=== PATIENT | female | born 1970 | race Caucasian/White ===

== ENCOUNTER 2023-04-29 18:05 | Outpatient (REF) | payer MEDICAID, SELFPAY ==
[2023-04-29 18:50] LABS: Influenza A PCR NEGATIVE (Negative); Influenza B PCR NEGATIVE (Negative); Resp Syncy Virus RNA Qual PCR NEGATIVE (Negative); SARS COV2 PCR INHOUSE NEGATIVE (Negative)
== END 2023-04-29 18:06 | disposition home or self-care (01) ==
LOC: HO.HHCLNP 18:05
PROVIDERS: Visit Provider Emergency Medicine
DX: Z11.52 Encounter for screening for COVID-19 (principal); R68.89 Other general symptoms and signs
CPT/HCPCS: 0241U; 87070

== ENCOUNTER 2023-10-31 13:04 | Outpatient (REF) | payer MEDICAID, SELFPAY ==
[2023-10-31 16:32] LABS: Alanine Aminotransferase 22 U/L (0-31); Albumin Level 3.9 g/dL (3.5-5.0); Alkaline Phosphatase 74 U/L (39-117); Anion Gap 13 (12-20); Aspartate Amino Transferase 23 U/L (5-31); Bilirubin Total 0.1 mg/dL (0.0-1.0); Blood Urea Nitrogen 13 mg/dL (9-16); Calcium 9.3 mg/dL (8.4-10.2); Carbon Dioxide 26 mmol/L (22-29); Chloride 105 mmol/L (96-108); Cholesterol 184 mg/dL (<200); Estimated Glomerular Filt Rate 55; Glucose Random 82 mg/dL (60-115); HDL Cholesterol 48 mg/dL (>40); LDL Cholesterol Calculated 110 mg/dL (<100); Potassium 3.9 mmol/L (3.3-5.1); Sodium 140 mmol/L (135-145); Total Protein 7.7 g/dL (6.5-8.0); Triglycerides 132 mg/dL (<150)
[2023-10-31 16:35] LABS: Rheumatoid Factor 23.7 IU/mL (<15.0)
[2023-10-31 16:49] LABS: Estimated Average Glucose 120 mg/dL; Hemoglobin A1c % 5.8 % (<6.0)
== END 2023-10-31 13:05 | disposition home or self-care (01) ==
LOC: HO.HHCL 13:04
PROVIDERS: Visit Provider General Practice
DX: E78.49 Other hyperlipidemia (principal); M06.9 Rheumatoid arthritis, unspecified
CPT/HCPCS: 36415; 80053; 80061; 83036; 86431

== ENCOUNTER 2023-11-25 07:53 | Outpatient (REF) | payer MEDICAID, SELFPAY ==
--- NOTE | ~2023-11-25 | MM_ITS ---
EXAMINATION: MM SCREENING DIGITAL BREAST TOMOSYNTHESIS, BILATERAL CLINICAL INFORMATION: Screening. Asymptomatic. COMPARISON: Mammography: This study is compared with prior exams dating back to 2015. TECHNIQUE: Digital breast tomosynthesis is performed in both the craniocaudal and mediolateral oblique views along with computer-aided detection (CAD). Synthesized 2D images are generated from the tomosynthesis. FINDINGS: There are scattered areas of fibroglandular density (ACR BI-RADS breast composition Category b). There are no significant masses, abnormal calcifications, or other abnormalities. MM/MM tomosynthesis screening BI IMPRESSION: No mammographic evidence of malignancy. ASSESSMENT: BI-RADS BI-RADS 1 - Negative RECOMMENDATION: Routine annual mammography screening. 1 year F/U This examination should not preclude the clinical evaluation of a suspicious palpable abnormality. This patient's information was entered into a reminder system with a target due date for their next mammogram.
== END 2023-11-25 07:54 | disposition home or self-care (01) ==
LOC: HO.MAMMO 07:53
PROVIDERS: PCP General Practice; Visit Provider General Practice
DX: Z12.31 Encounter for screening mammogram for malignant neoplasm of breast (principal)
CPT/HCPCS: 77063; 77067

== ENCOUNTER → 2023-11-25 08:15 | Outpatient (BNV) | payer MEDICAID, SELFPAY | PROVIDERS: PCP General Practice; Visit Provider Radiology Diagnostic Radiology | DX: Z12.31 Encounter for screening mammogram for malignant neoplasm of breast (principal) | CPT/HCPCS: 77063; 77067 ==

== ENCOUNTER 2024-04-08 07:23 | Emergency (ER) | payer MEDICAID, SELFPAY ==
--- NOTE | ~2024-04-08 | XR_ITS ---
EXAMINATION: XR FOOT, RIGHT CLINICAL INFORMATION: Status post fall. COMPARISON: None available. TECHNIQUE: AP, lateral, and oblique views of the right foot. FINDINGS: Acute comminuted cortical disruption involving the head of the third and fourth metatarsals with lateral angulation. The phalanges of the toes are intact. The first second and fifth metatarsals are intact. The tarsal bones are intact. Degenerative changes in the first metatarsophalangeal joint.. XR/XR foot RT min 3V IMPRESSION: Acute comminuted laterally displaced fractures, heads of the third and fourth metatarsals, right foot. Positive exam. Electronically signed by: Julius Edmond MD 04/08/2024 08:14 AM EDT RP
--- NOTE | ~2024-04-08 | XR_ITS ---
EXAMINATION: XR ANKLE, RIGHT CLINICAL INFORMATION: Status post fall. COMPARISON: X-ray dated September 18, 2017 TECHNIQUE: AP, lateral, and mortise views of the right ankle. FINDINGS: No acute cortical disruption or malalignment. No lytic or blastic lesions. No metallic or radiopaque foreign body. No joint effusion. XR/XR ankle RT min 3V IMPRESSION: No acute fracture or dislocation. Electronically signed by: Julius Edmond MD 04/08/2024 08:12 AM EDT
--- NOTE | ~2024-04-08 | XR_ITS ---
EXAMINATION: XR KNEE, RIGHT CLINICAL INFORMATION: Status post fall. COMPARISON: X-ray dated September 18, 2017 TECHNIQUE: Four views of the right knee. FINDINGS: No acute cortical disruption or malalignment. Joint space narrowing involving mostly the medial compartment. No joint effusion. No lytic or blastic lesions. No subcutaneous emphysema. No metallic or radiopaque foreign body. XR/XR knee RT 3V IMPRESSION: No acute fracture or dislocation. Electronically signed by: Julius Edmond MD 04/08/2024 08:10 AM EDT
[2024-04-08 07:25] VITALS: BP 150/78; PULSE 111; RESP 20; TEMP 36.2; O2SAT 97; BMI 39.0
--- NOTE | 2024-04-08 07:38 | ED_ITS ---
HPI - Fall General Chief Complaint: Fall Stated Complaint: Fall yesterday - ankle injury Time Seen by Provider: 04/08/24 07:32 Source: patient, RN notes reviewed and old records reviewed Mode of arrival: ambulatory History of Present Illness ED Provider: Shila Sweeney PA-C [facility] Narrative: 53-year-old female no significant past medical history presenting to the ED complaining of right knee, foot and ankle pain s/p trip and fall while walking down stairs yesterday. States was picking up granddaughter from school and missed step, rolling ankle/falling to ground. Denies head trauma or LOC. has been ambulatory with discomfort. Admits to associated paresthesias. Denies injury to the area Related Data Allergies Allergy/AdvReac Type Severity Reaction Status Date / Time No Known Allergies Allergy Unknown NONE Verified 04/08/24 07:27 Review of Systems Review of Systems: Yes all other systems are reviewed and are negative Constitutional: Constitutional: Reports as per [facility] Past Medical History Attestation statement: The following information was validated with the patient. Source: old records reviewed Social History Social History Advance Directives: No Advance Directives Information Provided: Yes Do you have a plan to hurt others: No Plan Physical Exam Vital Signs: Vital Signs: Last Vital Signs Temp 97.1 F 04/08/24 07:25 Pulse 111 H 04/08/24 07:25 Resp 20 04/08/24 07:25 BP 150/78 H 04/08/24 07:25 Pulse Ox 97 04/08/24 07:25 O2 Del Method Room Air 04/08/24 07:25 BMI result Body Mass Index 39.0 Const: General: cooperative, healthy appearing and no acute distress Orientation/consciousness: patient oriented x3 Limitations: no limitations HEENT: Head: Yes normal to inspection and Yes atraumatic Ears: hearing grossly normal bilaterally General nose exam: Normal external nose present Face and sinus: Yes normal facial exam Eyes: General: appearance normal, both eyes and all related structures EOM: EOMs intact bilaterally Neck: Neck: Yes normal visual inspection and Yes no meningeal signs Resp: Effort & Inspection: normal respiratory effort and no respiratory distress Cardio: Rate: regular rate Skin: Rashes: no rashes Wounds: no wounds Neuro: General: patient oriented x3, tone normal and no meningeal signs Cranial nerves: Yes CN's II-XII intact bilaterally Gait exam (Neuro): Normal gait present Extrem: Other: Right knee with mild swelling and superficial abrasion. Mildly tender to palpation. ROM intact with some discomfort. Right ankle/foot with mild swelling > lateral aspect. Diffusely tender to palpation. Limited ROM secondary to pain. Neurovascularly intact. No crepitus Course Course Course Narrative: XR knee RT 3V IMPRESSION: No acute fracture or dislocation. XR ankle RT min 3V IMPRESSION: No acute fracture or dislocation. XR foot RT min 3V IMPRESSION: Acute comminuted laterally displaced fractures, heads of the third and fourth metatarsals, right foot. Positive exam. > posterior short-leg splint applied and crutches. Patient to be nonweightbearing until follows up with Orthopedics Results discussed with patient including worrisome signs and symptoms and strict return precautions, and when to return to the emergency department. They verbalized understanding and feel safe for discharge at this time. Medications Administered Discontinued Medications Generic Name Dose Route Start Last Admin Trade Name Luis Manuelq PRN Reason Stop Dose Admin Ketorolac Tromethamine 30 mg 04/08/24 07:41 04/08/24 08:09 Ketorolac Tromethamine 30 Mg/Ml Vial IM 04/08/24 07:42 30 mg ONCE ONE Administration Procedures Orthopedic Splinting/Casting Injury #1: Side: right Lower Extremity Injury Location: foot Lower Extremity Immobilizer: posterior splint Other Orthopedic Equipment: crutches Medical Decision Making Medical Decision Making MDM Narrative: 53-year-old female no significant past medical history presenting to the ED complaining of right knee, foot and ankle pain s/p trip and fall while walking down stairs yesterday. On exam tachycardic likely from pain, NAD/nontoxic appearing, physical exam as noted above. Concern for fracture vs sprain. No ev idence of septic joint/arthritis plan: X-rays, pain control Please refer to course for remaining clinical decision making, interpretation of labs/imaging results, and discussions with consultants and/or family members. Differential Diagnosis Differential Diagnoses: The differential diagnosis associated with the presentation includes As above Independent Interpretation I performed an independent interpretation of an: Plain X-Ray Radiology Impression Discussion of test interpretation with radiology: I have reviewed the radiologist's reading. External Record Review External record reviewed: Inpatient record, Office record, Outpatient record, Prior outpatient labs, Prior outpatient radiology, Primary care record and Outside ED record Tests considered The following testing was considered but not selected: As above Prescription Management I considered prescription management with: Pain Medication Discharge Plan Discharge Clinical Impression: Closed fracture of head of metatarsal bone Patient Disposition: Home, Self-Care Instructions: Foot Fracture in Adults (ED) Additional Instructions: You broke your 3rd and 4th foot bones, metatarsal heads. Keep splint on, dry, and clean DO NOT PUT ANY WEIGHT ON YOUR RIGHT FOOT. USE CRUTCHES You need to follow up with Orthopedics, call to make an appointment Ice and elevate Take ibuprofen and Tylenol for pain/swelling If her toes become increasingly swollen, painful, discolored, or numb remove splint and return to the ED [place] [facility] [place] [place] [facility] [facility] [place] Group] - 1 week Stand Alone Forms: Work/School Release Print Language: Greenlandic
[2024-04-08] MEDS: Ketorolac Tromethamine 30 MG/ML VIAL IM (08:09)
[2024-04-08 09:36] VITALS: BP 127/97; PULSE 79; RESP 18; TEMP 36.6
== END 2024-04-08 09:38 | disposition home or self-care (01) ==
PROVIDERS: Emergency Provider Emergency Medicine; PCP General Practice
DX: S92.331A Displaced fracture of third metatarsal bone, right foot, initial encounter for closed fracture (principal); S80.211A Abrasion, right knee, initial encounter; M25.561 Pain in right knee; M25.571 Pain in right ankle and joints of right foot; W10.9XXA Fall (on) (from) unspecified stairs and steps, initial encounter; Y93.89 Activity, other specified; Y92.89 Other specified places as the place of occurrence of the external cause; Y99.8 Other external cause status
CPT/HCPCS: 29515; 73562; 73610; 73630; 96372; 99283; 99284; J1885

== ENCOUNTER → 2024-04-08 07:37 | Outpatient (BNV) | payer MEDICAID, SELFPAY | PROVIDERS: Emergency Provider Emergency Medicine; PCP General Practice; Visit Provider Radiology Diagnostic Radiology | DX: S92.331A Displaced fracture of third metatarsal bone, right foot, initial encounter for closed fracture (principal); S92.344A Nondisplaced fracture of fourth metatarsal bone, right foot, initial encounter for closed fracture; M25.561 Pain in right knee; M25.571 Pain in right ankle and joints of right foot | CPT/HCPCS: 73562; 73610; 73630 ==

== ENCOUNTER 2024-04-16 11:43 | Outpatient (REF) | payer MEDICAID, SELFPAY ==
--- NOTE | ~2024-04-16 | XR_ITS ---
EXAMINATION: XR FOOT, RIGHT CLINICAL INFORMATION: Displaced fracture 5th metatarsal COMPARISON: X-rays of the right foot March 2024 TECHNIQUE: AP, lateral, and oblique views of the right foot. FINDINGS: There is a minimally displaced and angulated fracture of the 3rd metatarsal the level of the metatarsal neck. The distal fragment is tilted slightly laterally. No significant change compared to prior. Minimally displaced fracture of the 4th metatarsal better visualized on the prior examination. 5th metatarsal intact. There is mild to moderate osteoarthritis of the 1st metatarsophalangeal joint. Cyst present the base of the 4th metatarsal likely related to arthrosis of the 4th tarsometatarsal joint. Small plantar calcaneal spur. XR/XR foot RT min 3V IMPRESSION: 1. Fractures of the 3rd and 4th metatarsals unchanged compared with the prior examination 04/08/2024.. 2. Osteoarthritis Electronically signed by: Isaias Panchal MD 04/16/2024 05:19 PM EDT
== END 2024-04-16 11:44 | disposition home or self-care (01) ==
LOC: HO.HOSX 11:43
DX: S92.351A Displaced fracture of fifth metatarsal bone, right foot, initial encounter for closed fracture (principal); S92.331D Displaced fracture of third metatarsal bone, right foot, subsequent encounter for fracture with routine healing; S92.341D Displaced fracture of fourth metatarsal bone, right foot, subsequent encounter for fracture with routine healing
CPT/HCPCS: 73630; 99212

== ENCOUNTER 2024-04-16 13:47 | Outpatient (AMB) | payer MEDICAID, SELFPAY ==
[2024-04-16 13:54] VITALS: BMI 39.0
--- NOTE | 2024-04-16 13:54 | MHC.OFFVIS ---
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 Patient reports throbbing when standing, numbness, heel pain, ankle pain, as well as a burning sensation on the volar aspect of the right foot. She has been taking Ibuprofen 600 mg PRN for pain with minimal relief. Reports right ankle fracture 2 years ago in [place]. 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 The patient reports that at that time, she missed a step, and slipped onto her right foot, and immediately began to experience significant discomfort and swelling in that area. Patient states that she went to the emergency department the next day, where x-rays were taken revealing a minimally displaced fractures of the 3rd and 4th metatarsal heads. Patient was put in a splint at that time, but the patient states that this was incredibly cumbersome and heavy, so she did remove the splint fairly frequently, including for bathing. Today, the patient reports that she does still have some pain in her foot, but it has significantly improved since ED visit. The patient reports that she has been nonweightbearing since date of injury. No other acute complaints or concerns at this time. [facility] Social History (Updated 04/16/24 @ 14:01 by ELEANOR Nelson) Current occupational status: employed Current occupation: [employer] Physical Exam Vital Signs: BMI result Body Mass Index 39.0 Extrem Other: On inspection, there is noted to be edema of the right foot, particularly at the level of the 3rd and 4th metatarsal heads No erythema or ecchymosis noted No lacerations, abrasions, open areas No evidence of infection Patient reports tenderness to palpation of the 3rd and 4th metatarsal heads of the right foot Patient is able to flex and extend the digits of the right foot Distal sensation intact Capillary refill brisk Office Procedures AMB Fracture Care Details: Right 3rd and 4th metatarsal head fractures Fracture Billing Code: Fracture Billing Code Results Reviewed Results Reviewed: X-rays obtained in the office today and independently reviewed by me, Juan Carlos Medina PA-C, demonstrate minimally displaced fractures of the 3rd and 4th metatarsal heads of the right foot. Assessment & Plan Assessment & Plan (1) Fracture of third metatarsal bone of right foot with routine healing: Code(s): S92.331D - Displaced fracture of third metatarsal bone, right foot, subsequent encounter for fracture with routine healing Category: Medical (2) Fracture of fourth metatarsal bone of right foot with routine healing: Code(s): S92.341D - Displaced fracture of fourth metatarsal bone, right foot, subsequent encounter for fracture with routine healing Category: Medical Plan 1. Minimally displaced fractures of the 3rd and 4th metatarsal heads of the right foot Date of injury 04/07/2024 At this time, patient was placed into a walking boot, and is told that she can weight bear as tolerated while wearing the boot Patient is educated that she can remove the boot while at rest And while bathing and sleeping patient understands this and is amenable to this plan Patient is educated that she should not weight bear without boot for risk of displacement of the fractures Patient will follow-up in 3-4 weeks with repeat x-rays for reassessment, sooner with any acute concerns Orders: Orders XR foot RT min 3V 04/16/24 S92.351A - Displaced fracture of fifth metatarsal bone, right foot, initial encounter for closed fracture Coding Level of Care Code New Pt Level 3 (49237) Diagnoses Fracture of third metatarsal bone of right foot with routine healing S92.331D Fracture of fourth metatarsal bone of right foot with routine healing S92.341D CPT Codes Fracture Care - Fracture Billing Code: Fracture Billing Code ([id number])
== END 2024-04-16 14:55 | disposition home or self-care (01) ==
LOC: HO.HOS 13:47
PROVIDERS: PCP General Practice
DX: S92.331D Displaced fracture of third metatarsal bone, right foot, subsequent encounter for fracture with routine healing (principal); S92.341D Displaced fracture of fourth metatarsal bone, right foot, subsequent encounter for fracture with routine healing
CPT/HCPCS: 99203

== ENCOUNTER 2024-05-07 10:47 | Outpatient (REF) | payer MEDICAID, SELFPAY | END 2024-05-07 10:48 | disposition home or self-care (01) | LOC: HO.HOSX 10:47 | DX: Z13.89 Encounter for screening for other disorder (principal) ==

== ENCOUNTER 2024-09-21 17:47 | Emergency (ER) | payer MEDICAID, SELFPAY ==
--- NOTE | ~2024-09-21 | XR_ITS ---
CLINICAL HISTORY: sore throat, cough, cp 2 view chest x-ray Comparison: None Findings: No consolidation or effusion. Minimal left basilar atelectasis and/or scarring. No pneumothorax. Heart size is normal. No acute fracture. IMPRESSION: No consolidation. This document has been electronically signed by: Sebas Fallon MD on 09/21/2024 19:53:03
[2024-09-21 17:50] VITALS: BP 147/77; PULSE 104; RESP 18; TEMP 36.8; O2SAT 99; BMI 38.1
--- NOTE | 2024-09-21 17:50 | ED_ITS ---
HPI - General Adult General Chief complaint: Upper Respiratory Symptoms Stated complaint: Flu like symptoms Time Seen by Provider: 09/21/24 19:38 Source: patient Mode of arrival: ambulatory Limitations: no limitations History of Present Illness ED Provider: Dr. Roderick Recinos HPI narrative: 54-year-old female with a history of asthma, rheumatoid arthritis, fibromyalgia who presents emergency department for evaluation of 2 days of headache, sore throat, fever, chills, nonproductive cough, pleuritic chest pain and shortness of breath. Patient states she was had subjective fever and chills. The patient has a persistent nonproductive cough. Patient states that she was had a headache which is worse with coughing and a sore throat which is also worse with coughing. She states she was had no appetite in his only had a small amount of fluid to drink over the last 24 hours. Patient was been using her inhalers in her nebulizers and they have become less effective. Related Data Home Medications ?Medication ?Instructions ?Recorded ?Confirmed albuterol sulfate 90 mcg/actuation 2 puff inhalation Q4H PRN 04/16/24 aerosol inhaler (Ventolin HFA) amitriptyline 75 mg tablet 75 mg PO BEDTIME 04/16/24 atorvastatin 40 mg tablet 40 mg PO DAILY 04/16/24 baclofen 20 mg tablet 20 mg PO BID 04/16/24 cyanocobalamin (vitamin B-12) 500 500 mcg PO DAILY 04/16/24 mcg tablet famotidine 20 mg tablet 20 mg PO heartburn 04/16/24 gabapentin 800 mg tablet 800 mg PO pain 04/16/24 loratadine 10 mg tablet 10 mg PO QAM 04/16/24 mometasone 100 mcg/actuation HFA 1 puff inhalation 04/16/24 aerosol inhaler (Asmanex HFA) quetiapine 100 mg tablet 100 mg PO BEDTIME 04/16/24 sertraline 50 mg tablet 50 mg PO DAILY 04/16/24 zolpidem 5 mg tablet 5 mg PO BEDTIME PRN insomnia 04/16/24 Previous Rx's ?Medication ?Instructions ?Recorded acetaminophen 500 mg tablet 1,000 mg (2 x 500 mg) PO Q6H PRN 09/21/24 (Tylenol Extra Strength) fever or pain #20 tabs amoxicillin 500 mg capsule 1,000 mg (2 x 500 mg) PO TID 5 09/21/24 days #30 caps azithromycin 250 mg tablet See Rx Instructions PO .COMPLEX #6 09/21/24 (Zithromax Z-Surinder) tabs prednisone 20 mg tablet 60 mg (3 x 20 mg) PO DAILY 5 days 09/21/24 #15 tabs Allergies Allergy/AdvReac Type Severity Reaction Status Date / Time No Known Allergies Allergy Unknown NONE Verified 09/21/24 17:52 Review of Systems Review of Systems: Yes all other systems are reviewed and are negative [facility] Past Medical History [facility] Narrative: Social history: The patient denies tobacco, alcohol and drug use. Social History Social History (Updated 04/16/24 @ 14:01 by ELEANOR Nelson) Current occupational status: employed Current occupation: [employer] Physical Exam ED Vital Signs: Vital Signs - 24 hr 09/21/24 17:50 Temperature 98.2 F Pulse Rate 104 H Respiratory Rate 18 Blood Pressure 147/77 H Pulse Oximetry 99 Oxygen Delivery Method Room Air BMI result Body Mass Index 38.1 Vital signs revealed an elevated heart rate of 104 and an elevated blood pressure of 147/77 Exam: General: Awake, alert in no distress, patient has a persistent nonproductive paroxysmal cough Head: Normocephalic, atraumatic EENT: PERRL, Lids normal, sclera normal, conjunctiva normal, nose normal , ears normal, throat without erythema or exudates Neck: Supple, no adenopathy Lung: breath sounds symmetric, diffuse wheezing and diffuse rhonchi Chest: symmetric movement, nontender Heart: regular rate and rhythm, normal S1, S2 no murmurs or rubs Abdomen: soft, non-tender, nondistended, normal bowel sounds Back: no vertebral tenderness, no CVAT Extremities: no deformities, moves all extremities symmetrically Neuro: Awake, alert, oriented, normal speech, cranial nerves intact, moves all extremities symmetrically Psych: Pleasant, cooperative Course Course Course Narrative: RME, this is a rapid medical exam performed by Ceasar Tom please refer to primary provider for complete H&P- 54-year-old female presents for evaluation of fevers, body aches cough, congestion and sore throat. Plan for viral swabs and strep testing. Medical Decision Making Medical Decision Making [facility] Narrative: 54-year-old female with a history of asthma, rheumatoid arthritis, fibromyalgia who presents emergency department for evaluation of 2 days of headache, sore throat, fever, chills, nonproductive cough, pleuritic chest pain and shortness of breath. Patient states she was had subjective fever and chills. The patient has a persistent nonproductive cough. Patient states that she was had a headache which is worse with coughing and a sore throat which is also worse with coughing. She states she was had no appetite in his only had a small amount of fluid to drink over the last 24 hours. Patient was been using her inhalers in her nebulizers and they have become less effective. Differential diagnosis: ?Includes but is not limited to pneumonia, bronchitis, asthma exacerbation, anemia, electrolyte abnormalities Course: 20:22 My independent interpretation patient's laboratory evaluation is as follows: COVID-19, influenza and RSV tests were negative. Rapid strep was negative. The patient's chest x-ray revealed no acute infiltrates. Given the patient's rheumatoid arthritis and asthma, patient be treated for possible bacterial bronchitis with amoxicillin 1000 mg 3 times a day for 5 days and Zithromax Z- Surinder. Patient was also started on prednisone 60 mg once a day for 5 days. Here in the emergency department she was given her 1st dose of amoxicillin, Zithromax and prednisone. She was also given Tylenol 975 for her pleuritic chest pain Admission/Observation Consideration of admission/observation: Escalation of care including admission/observation considered (Yes) Lab Data MDM Lab Attestation statement: I reviewed the patient's lab results. Labs: Lab Results 09/21/24 Range/Units 18:01 Influenza Type A (PCR) NEGATIVE (Negative) Influenza Type B (PCR) NEGATIVE (Negative) RSV RNA Qual (PCR) NEGATIVE (Negative) SARS-CoV-2 RNA (RT-PCR) NEGATIVE (Negative) S. pyogenes GrpA MEJIA Negative (Negative) Independent Interpretation I performed an independent interpretation of an: EKG and Plain X-Ray Interpretation: My independent interpretation patient's two view chest x-ray is as follows: No acute infiltrates or consolidations noted My independent interpretation patient's 12 lead EKG done on 09/21/2024 at 17:55 hours is as follows: Normal sinus rhythm rate 94, normal [place] interval, QRS duration QTC interval, patient has artifact in the baseline which makes the EKG difficult to interpretation however there was no significant ST segment elevation or depression, no significant T-wave abnormalities, no PACs, no PVCs. Compared to an EKG dated 05/05/2020 18 at 18:35 hours there is no significant change. Radiology Impression Discussion of test interpretation with radiology: I have reviewed the radiologist's reading. Radiologist Impression: 2 view chest x-ray Comparison: None Findings: No consolidation or effusion. Minimal left basilar atelectasis and/or scarring. No pneumothorax. Heart size is normal. No acute fracture. IMPRESSION: No consolidation. This document has been electronically signed by: Sebas Fallon MD on 09/21/2024 19:53:03 Prescription Management I considered prescription management with: Pain Medication (Tylenol), Antibiotic and Other (Anti-inflammatory steroids: Prednisone) Amoxicillin and azithromycin Chronic Conditions Patient?s care impacted by: Other (Asthma, rheumatoid arthritis) Discharge Plan Discharge Clinical Impression: Acute bronchitis, Asthma exacerbation, Pleuritic chest pain Patient Disposition: Home, Self-Care Instructions: Acute Bronchitis (ED) Additional Instructions: Your COVID-19, influenza and RSV tests were negative. Your rapid strep throat test was negative. Your chest x-ray did not reveal any obvious pneumonia. At this time, I am concerned that you might have a bacterial bronchitis that is causing a flare-up of your asthma. Take amoxicillin 500 mg pills, 2 pills, every 6 hours (3 times a day) for 5 days. Take Zithromax (azithromycin) Z-Surinder as prescribed. Day 1 take 2 pills, each day after that take 1 pill for total of 5 days. This medication states in your system for 7-10 days and continues to work despite only taking it for 5 days. Take Tylenol (acetaminophen) 500 mg pills, 2 pills every 6 hours as needed for pain or fever. Continue to use your albuterol inhaler and your albuterol nebulizers to help with your shortness of breath. Follow-up with your doctor in 2 days. Please return to the emergency department if your symptoms get worse or if you develop any symptoms that are concerning to you. Prescriptions: New amoxicillin 500 mg capsule 1,000 mg PO TID 5 Days Qty: 30 0RF azithromycin [Zithromax Z-Surinder] 250 mg tablet See Rx Instructions .ROUTE .COMPLEX Qty: 6 0RF Rx Instructions: take 500 mg today (day 1), then 250 mg for 4 days (days 2-5) prednisone 20 mg tablet 60 mg PO DAILY 5 Days Qty: 15 0RF acetaminophen [Tylenol Extra Strength] 500 mg tablet 1,000 mg PO Q6H PRN (Reason: fever or pain) Qty: 20 0RF No Action zolpidem 5 mg tablet 5 mg PO BEDTIME PRN (Reason: insomnia) gabapentin 800 mg tablet 800 mg PO sertraline 50 mg tablet 50 mg PO DAILY cyanocobalamin (vitamin B-12) 500 mcg tablet 500 mcg PO DAILY famotidine 20 mg tablet 20 mg PO baclofen 20 mg tablet 20 mg PO BID quetiapine 100 mg tablet 100 mg PO BEDTIME amitriptyline 75 mg tablet 75 mg PO BEDTIME atorvastatin 40 mg tablet 40 mg PO DAILY Asmanex HFA 100 mcg/actuation HFA aerosol inhaler 1 puff inhalation albuterol sulfate [Ventolin HFA] 90 mcg/actuation HFA aerosol inhaler 2 puff inhalation Q4H PRN loratadine 10 mg tablet 10 mg PO QAM Print Language: Maori
--- NOTE | 2024-09-21 17:51 | ECG_ITS ---
Test Reason : CP Blood Pressure : */* mmHG Vent. Rate : 94 BPM Atrial Rate : 94 BPM P-R Int : 148 ms QRS Dur : 76 ms QT Int : 342 ms P-R-T Axes : 54 0 6 degrees QTcB Int : 427 ms Normal sinus rhythm Normal ECG When compared with ECG of 13-May-2018 18:35, No significant change was found Referred By: Deepak Tom Electronically Signed By: Marcos Meeks
[2024-09-21 18:12] LABS: IDNOW Serial# 58CA691E; Strep A Nucleic Acid Negative (Negative)
[2024-09-21 18:44] LABS: Influenza A PCR NEGATIVE (Negative); Influenza B PCR NEGATIVE (Negative); Resp Syncy Virus RNA Qual PCR NEGATIVE (Negative); SARS COV2 PCR INHOUSE NEGATIVE (Negative)
--- OUTSIDE RECORDS SUMMARY | 2024-09-21 19:21 | XMS_ITS | Encounter Summary ---
Author Organization [employer] Address [address] [place] [address] Care Team Providers Care Hydrological Technical Officer Name Role Phone Selina Hassan MD Primary Care Provider [phone] Reason for Visit * Reason Comments Med Refill Encounter Details Date Type Department Care Team (Late st Contact Info) Description 09/26/2023 Refill [facility] [address] [place], [place] [phone] Dylan Ferguson MD [address] [place] [address] Social History Tobacco Use Types Packs/Day Years Used Date Smoking Tobacco: Never Passive Smoke Exposure: Never Smokeless Tobacco: Never Alcohol Use Standard Drinks/Week Comments Never 0 (1 standard drink = 0.6 oz pur e alcohol) Comments Unknown Sex and Gender Information Value Date Recorded Sex Assigned at Female 04/29/2023 10:59 AM EST Legal Sex Female 10:55 AM EST Gender Identity Female 04/29/2023 10:59 AM EST Sexual Orientation Don't know 10/31/2023 1: 18 PM EDT Sexual Orientation Straight 10/31/2023 1: 18 PM EDT documented as of this encounter Plan of Treatment Not on file documented as of this encounter Visit Diagnoses Not on filedocumented in this encounter Care Teams Hydrological Technical Officer Relationship Specialty Start Date End Date Selina Hassan MD [address] [place] [address] [phone] PCP - General Family Medicine 10/31/23 documented as of this encounter
--- OUTSIDE RECORDS SUMMARY | 2024-09-21 19:21 | XMS_ITS | Clinical Summary ---
Author Organization [employer] Address [address] [place] [address] Care Team Providers Care Plant Operations Worker Name Role Phone Selina Hassan MD Primary Care Provider [phone] Allergies No known active allergies Medications * This document contains information received from the source organization and may not represent a complete record from that organization. meloxicam (Mobic) 15 MG tablet Take 15 mg by mouth in the morning. Active fluticasone (Flonase Allergy Relief) 50 MCG/ACT nasal spray Administer 1 spray into each nostril in the morning. Shake gently. Before first use, prime pump. After use, clean tip and replace cap. 16 g 1 04/29/20 23 Active loratadine (Claritin) 10 MG tablet Take 1 tablet (10 mg) by mouth in the morning. 30 tablet 3 04/29/20 23 Active montelukast (Singulair) 10 MG tablet Take 1 tablet (10 mg) by mouth in the morning. 30 tablet 1 04/29/20 23 Active Asmanex HFA 100 MCG/ACT aerosol INHALE 1 PUFF BY MOUTH TWICE DAILY IN THE MORNING AND AT BEDTIME RINSE MOUTH AFTER USING. 13 g 10/13/19 24 Active amitriptyline (Elavil) 75 MG tabletIndications: Migraine without aura and without status migrainosus, not intractable Take 1 tablet (75 mg) by mouth at bedtime. 90 tablet 3 10/31/19 24 Active sertraline (Zoloft) 50 MG tabletIndications: Depression, unspecified depression type Take 1 tablet (50 mg) by mouth Once per day. 90 tablet 3 10/31/19 24 025 Active baclofen (Lioresal) 20 MG tabletIndications: Neck pain Take 1 tablet (20 mg) by mouth 2 times daily. 180 tablet 3 10/31/19 24 Active atorvastatin (Lipitor) 40 MG tabletIndications: Other hyperlipidemia Take 1 tablet (40 mg) by mouth Once per day. 90 tablet 3 10/31/19 24 Active QUEtiapine (SEROquel) 100 MG tabletIndications: Depression, unspecified depression type Take 1 tablet (100 mg) by mouth at bedtime. 90 tablet 1 10/31/19 24 Active famotidine (Pepcid) 20 MG tablet Take 1 tablet (20 mg) by mouth if needed in the morning and at bedtime for heartburn. 180 tablet 3 10/31/19 24 025 Active Cyanocobalamin (Vitamin B-12) [address] 500 mcg under the tongue Once per day. 90 tablet 3 10/31/19 24 Active gabapentin (Neurontin) 800 MG tabletIndications: Neck pain Take 1 tablet (800 mg) by mouth if needed in the morning and at bedtime (pain). 180 tablet 3 11/21/19 24 Active zolpidem (Ambien) 5 MG tabletIndications: Primary insomnia TAKE 1 TABLET BY MOUTH EVERY DAY AT BEDTIME NEEDED FOR SLEEP 30 tablet 04/09/20 24 Active albuterol (2.5 MG/3ML) 0.083% nebulizer solution TAKE 3 ML BY NEBULIZATION ROUTE EVERY 6 HOURS NEEDED FOR WHEEZING OR SHORTNESS OF BREATH 75 mL 1 05/25/20 24 Active albuterol 108 (90 Base) MCG/ACT inhaler INHALE 2 PUFFS BY MOUTH EVERY 4 HOURS NEEDED FOR WHEEZING OR SHORTNESS OF BREATH 18 g 1 05/25/20 24 Active Active Problems Problem Noted Date Diagnosed Date Splinter of left foot 11/04/2023 Assessment & Plan (11/04/2023 1:30 PM EDT): Neck pain 11/03/2023 Assessment & Plan (11/03/2023 6:38 AM EDT): She would like to have breast reduction performed Needs BMI < 35, will work on with diet and lifestyle Has been to PT and with negative EMG/[place] Primary insomnia 11/03/2023 Assessment & Plan (11/03/2023 6:40 AM EDT): Sparing use of Ambien 5mg, discussed risks of tolerance and oversedation She will discuss other medications with her psych prescriber, when she has that relationship Mild persistent asthma without complication 10/14 Anxiety 04/29/2023 Depression 04/29/2023 Rheumatoid arthritis involving multiple sites Migraines 04/29/2023 HLD (hyperlipidemia) 04/29/2023 Encounters Date Type Department Care Team Description 08/27/2024 Population Health Risk Score [facility] Care [facility] (C3) Department [address] [phone] Provider, Population Health Generic from Last 3 Months Immunizations Name Administration Dates Next Due Influenza Injectable Quadriv alant Preservative Free IIV4 MDCK 05/26/2023 MMR 06/30/2023,05/28/2023 Pfizer Covid-19 Vaccine 12+ 05/26/2023 Social History Tobacco Use Types Packs/Day Years Used Date Smoking Tobacco: Never Passive Smoke Exposure: Never Smokeless Tobacco: Never Tobacco Cessation:Counseling Given: Not Answered Alcohol Use Standard Drinks/Week Comments Never 0 (1 standard drink = 0.6 oz pur e alcohol) Depression Answer Date Recorded Patient Health Questionnaire-9 Score 15 10/31/2023 Patient Health Questionnaire-9 Score 15 10/31/2023 Last PHQ-9: Questionnaire Data Not on file 0 10/31/2023 Housing Stability Answer Date Recorded What is your housing situation today? I have mendozabrigido adame 10/31/[address] you li ve. Do you have problems with any of the following? None of the above 10/31/2023 Food Insecurity Answer Date Recorded Within the past 12 months, y ou worried that your food would run out before you got money to buy more: Never True 10/31/2023 Within the past 12 months,th e food you bought just didn't last and you didn't have enough money to get more: Never True Transportation Answer Date Recorded In the past 12 months, has l ack of transportation kept you from medical appts, meetings, work or from getting things needed for daily living? Yes, it has kept me from medical appointments or getting medications. 10/31/2023 Utilities Answer Date Recorded In the past 12 months, has t he electric, gas, oil or water company threatened to shut off services in your home? No 10/21/2023 Depression Answer Date Recorded Patient Health Questionnaire-2 Score 6 10/31/2023 Comments No Sex and Gender Information Value Date Recorded Sex Assigned at Female 04/29/2023 10:59 AM EST Legal Sex Female 10:55 AM EST Gender Identity Female 04/29/2023 10:59 AM EST Sexual Orientation Don't know 10/31/2023 1: 18 PM EDT Sexual Orientation Straight 10/31/2023 1: 18 PM EDT Last Filed Vital Signs Vital Sign Reading Time Taken Comments Blood Pressure 140/79 11/04/2023 1:03 PM EDT Pulse 92 11/04/2023 1:03 PM EDT Temperature 37.1 ??C (98.7 ??F) 11/04/2023 1:03 PM ED T Respiratory Rate 12 11/04/2023 1:03 PM EDT Oxygen Saturation 97% 10/10/2023 1:03 PM EDT Inhaled Oxygen Concentration - - Weight 89.9 kg (198 lb 2 oz) 11/04/2023 1:03 PM EDT Height 157.5 cm (5' 2 ) 11/04/2023 1:03 PM EDT Body Mass Index 36.24 11/04/2023 1:03 PM EDT Plan of Treatment Health Maintenance Due Date Last Done Comments CT Colonography 1968 Colonoscopy 1968 Colorectal Cancer Screening 1968 FIT DNA/Cologuard 1968 FIT 1968 FOBT 1968 HIV Screening 1968 Sigmoidoscopy 1968 Hepatitis C Screening 1986 DTaP/Tdap/Td Vaccines (1 - Tdap) 1987 Hepatitis B Vaccines (1 of 3 - 19+ 3-dose series) 1987 Pneumococcal Vaccine: 50+ Years (1 of 2 - PCV) 1987 Pap Smear 1989 Cervical Cancer Screening 1998 HPV/Cotest 1998 Zoster Vaccines (1 of 2) 2018 COVID-19 Vaccine (2 - 2023-2 5 season) 2024 05/26/2023 Influenza Vaccine (#1) 2024 05/26/2023 Depression Monitoring (PHQ-9) 05/02/2024, 10/31/2023 Alcohol/Substance Use Screening 10/30/2024 10/31/2023 Depression Screening 10/30/2024 10/31/2023, 10/31/2023 Diabetes: Hemoglobin A1C 10/30/2024 10/31/2023 SDOH Screening 10/30/2024 10/31/2023 Tobacco Screening 11/03/2024 11/04/2023 Mammogram 11/24/2024 11/25/2023 RSV Patients and Patients Aged 60 years or older (1 - 1-dose 75+ series) 2043 HIB Vaccines Aged Out No longer eligi ble based on patient's age to complete this topic HPV Vaccines Aged Out No longer eligi ble based on patient's age to complete this topic Hepatitis A Vaccines Aged Out No long er eligible based on patient's age to complete this topic IPV Vaccines Aged Out No longer eligi ble based on patient's age to complete this topic Meningococcal Vaccine Aged Out No matthias roger eligible based on patient's age to complete this topic RSV under 20 months Aged Out No longe r eligible based on patient's age to complete this topic Rotavirus Vaccines Aged Out No longer eligible based on patient's age to complete this topic Procedures Procedure Name Priority Date/Time Associated Diagnosis Comments SARS COV2/INFLUENZA A/B AND RSV RNA QL NAAT Routine 09/21/2024 6:01 PM EDT STREP A NUCLEIC ACID Routine 09/21/2024 6:01 PM EDT BI MAMMOGRAM SCREENING TOMOSYNTHESIS BILATERAL Routine 11/25/2023 8:29 AM EDT Encounter for screening mammogram for malignant neoplasm of breast HEMOGLOBIN A1C Routine 10/31/2023 1:16 PM EDT Other hyperlipidemia from Last 3 Months or Most Recently Relevant to Health Maintenance Results * Strep A Nucleic Acid (09/21/2024 6:01 PM EDT) IDNOW SERIAL# [id number] [facility] Strep A Nucleic Acid Negative Negative [facility] Comment:All test results mus t be correlated with clinical findings.This test has not been evaluated for monitoring treatment ofinfection.Additional follow-up testing using the culture method isrequired if the result is negative and clinical symptomspersist, or in the event of an acute rheumatic feveroutbreak. 09/21/2024 6:01 PM EDT 09/21/2024 6:03 PM EDT us Generic External Data Provider LAB MICROBIOLOGY - GENERAL ORDERABLES Final Result Performing Organization Address [facility]/ZIP Co de Phone Number [facility] [address] [place] [phone] * SARS-CoV-2 RNA, Influenza A/B, and RSV RNA, Ql NAAT (09/21/2024 6:01 PM EDT) Influenza A PCR NEGATIVE Negative [facility] Influenza B PCR NEGATIVE Negative [facility] Resp Syncy Virus RNA Qual PCR NEGATIVE Negative [facility] SARS COV2 PCR NEGATIVE Negative [facility] Comment:All test results mus t be correlated with clinical findings.Negative results do not preclude SARS-CoV2, influenza Avirus, influenza B virus and/or RSV infectionand should not be used as the sole basis for treatment orother patient management decisions. Negative results must becombined with clinical observations, patient history, andepidemiological information.This test has not been evaluated for monitoring treatment ofinfection.This test has been authorized by the FDA under an EmergencyUse Authorization (EUA) for use by authorized laboratories.Testing performed on the [employer] GeneXpert utilizingreal-time RT-PCR.All SARS CoV2 and positive influenza A/B results arereported to [facility]. 09/21/2024 6:01 PM EDT 09/21/2024 6:03 PM EDT us Generic External Data Provider LAB MICROBIOLOGY - GENERAL ORDERABLES Final Result Performing Organization Address City/[facility]/ZIP Co de Phone Number [facility] [address] [place] [address] [phone] * BI Mammogram Screening Tomosynthesis Bilateral (11/25/2023 8:29 AM EDT) Anatomical Region Laterality Modality Breast Bilateral Mammography 11/25/2023 8:29 AM EDT Narrative 12/25/2023 7:33 AM EDT ? [facility] [place] ? [address] ?[place] [address] ? Mammography Report ? Signed ? Patient: Lia Dudley ?MR#: [id number] ?? [id number] ? : 1970 ?Acct:[id number] ? Age/Sex: 53 / F ?ADM Date: 11/25/23 ? Loc: HO.MAMMO ? Attending Dr: Selina Hassan MD ? Ordering Physician: Selina Hassan ?Results: 1Negative ? Date of Service: 11/25/23 ?Follow Up: 1 Year From Orig ?? inal Mammogram ? Procedure(s): MM tomosynthesis screening BI ?? Accession Number(s): [id number] ? cc: Sleina Hassan ? EXAMINATION: ?? MM SCREENING DIGITAL BREAST TOMOSYNTHESIS, BILATERAL ? CLINICAL INFORMATION: ? Screening. Asymptomatic. ? COMPARISON: ?? Mammography: This study is compared with prior exams dating back to ?? 2014. ? TECHNIQUE: ?? Digital breast tomosynthesis is performed in both the craniocaudal and ?? mediolateral oblique views along with computer-aided detection (CAD). ?? Synthesized 2D images are generated from the tomosynthesis. ? FINDINGS: ?? There are scattered areas of fibroglandular density (ACR BI-RADS breast ?? composition Category b). ? There are no significant masses, abnormal calcifications, or other ?? abnormalities. ? MM/MM tomosynthesis screening BI ?? IMPRESSION: ?? No mammographic evidence of malignancy. ? ASSESSMENT: ? BI-RADS BI-RADS 1 - Negative ? RECOMMENDATION: ?? Routine annual mammography screening. ? 1 year F/U ? This examination should not preclude the clinical evaluation of a ?? suspicious palpable abnormality. ? This patient's information was entered into a reminder system with a ?? target due date for their next mammogram. ? Dictated By: ?Tere Drake MD ? Signed By: ?<Electronically signed by Tere Drake MD in OV> ? 12/25/23728 ? DD/ 0829 ? TD/TT: ? Photogrammetrist: ? Procedure Note Errol Ramos - 12/25/2023 [facility] [address] [place] [address] Mammography Report Signed Patient: Lia DudleyMR#: [id number] : 1970Acct:[id number] Age/Sex: 53 / FADM Date: 11/25/23 Loc: YOAN Attending Dr: Selina Hassan MD Ordering Physician: Placido Hassanults: 1Negative Date of Service: 11/25/23Follow Up: 1 Year From Orig inal Mammogram Procedure(s): MM tomosynthesis screening BI Accession Number(s): [id number] cc: Selina Hassan EXAMINATION: MM SCREENING DIGITAL BREAST TOMOSYNTHESIS, BILATERAL CLINICAL INFORMATION: Screening. Asymptomatic. COMPARISON: Mammography: This study is compared with prior exams dating back to 2014. TECHNIQUE: Digital breast tomosynthesis is performed in both the craniocaudal and mediolateral oblique views along with computer-aided detection (CAD). Synthesized 2D images are generated from the tomosynthesis. FINDINGS: There are scattered areas of fibroglandular density (ACR BI-RADS breast composition Category b). There are no significant masses, abnormal calcifications, or other abnormalities. MM/MM tomosynthesis screening BI IMPRESSION: No mammographic evidence of malignancy. ASSESSMENT: BI-RADS BI-RADS 1 - Negative RECOMMENDATION: Routine annual mammography screening. 1 year F/U This examination should not preclude the clinical evaluation of a suspicious palpable abnormality. This patient's information was entered into a reminder system with a target due date for their next mammogram. Dictated By: Tere Drake MD Signed By: <Electronically signed by Tere Drake MD in OV> 12/25/23728 DD/ 8 TD/TT: Photogrammetrist: Selina Hassan MD IMG BI PROCEDURES Final Result * Hemoglobin A1c (10/31/2023 1:16 PM EDT) Hemoglobin A1c 5.8 <6.0 % [facility] Comment:Hemoglobin A1C Refer ence Range Adults: 4.8 - 6.0 % Non diabetic: < 6.0 % Goal: < 7.0 %Additional Action Suggested: > 8.0 %Note: Hemoglobin A1c results are invalid for patients with abnormal amounts of HbF. Blood transfusions may impact the HbA1c concentration in the patient sample. Estimated Average Glucose 120 mg/dL [facility] Comment:eAG = Estimated ave rage glucose which is %A1C expressed asaverage glucose, using the formula of the [id number] Glucose study (ADAG), Diabetes Care, Vol.31,#8,Jan. 2007 Blood Venous blood specimen / Unknown 10/31/2023 1:16 PM EDT 10/31/2023 4:07 PM EDT Selina Hassan MD LAB BLOOD ORDERABLES Final Res ult [facility] [address] [place] [phone] from Last 3 Months or Most Recently Relevant to Health Maintenance Care Teams Plant Operations Worker Relationship Specialty Start Date End Date Selina Hassan MD [address] [place] [address] PCP - General Family Medicine 10/31/23
--- OUTSIDE RECORDS SUMMARY | 2024-09-21 19:21 | XMS_ITS | Encounter Summary ---
Author Organization [employer] Address [address] [place] [address] Care Team Providers Care Principal Android Developer Name Role Phone Selina Hassan MD Primary Care Provider [phone] Reason for Visit * Reason Comments Med Refill Encounter Details Date Type Department Care Team (Late st Contact Info) Description 08/17/2023 Refill [facility] [address] [place], [place] [phone] Dylan Ferguson MD [address] [place] [address] Social History Tobacco Use Types Packs/Day Years [...] on filedocumented in this encounter Care Teams Principal Android Developer Relationship Specialty Start Date End Date Selina Hassan MD [address] [place] [address] [phone] PCP - General Family Medicine 10/31/23 documented as of this encounter
--- OUTSIDE RECORDS SUMMARY | 2024-09-21 19:21 | XMS_ITS | Encounter Summary ---
Author Organization [employer] Address [address] [place] [address] Care Team Providers Care Sweatband Cutting Machine Operator Name Role Phone Selina Hassan MD Primary Care Provider [phone] Reason for Visit * Reason Comments Med Change Request Encounter Details Date Type Department Care Team ([facility] st Contact Info) Description 10/10/2023 Refill [facility] [address] [place], [place] [phone] Yaima Rascon FNP Social History Tobacco Use Types Packs/Day Years [...] PM EDT documented as of this encounter Miscellaneous Notes * Telephone Encounter - MAMTA Ley - 10/13/2023 10:25 AM EDT Approving, but needs appt for additional refills. documented in this encounter Plan of Treatment Not on file documented as of this encounter Visit Diagnoses Not on filedocumented in this encounter Care Teams Sweatband Cutting Machine Operator Relationship Specialty Start Date End Date Selina Hassan MD [address] [place] [address] PCP - General Family Medicine 10/31/23 documented as of this encounter
[2024-09-21 19:39] VITALS: BP 125/71; PULSE 96; RESP 20; TEMP 37.2; O2SAT 99
[2024-09-21] MEDS: Amoxicillin 500 MG CAPSULE 1000 MG PO (20:34)
[2024-09-21] MEDS: predniSONE 20 MG TABLET 60 MG PO (20:34)
[2024-09-21] MEDS: Azithromycin 500 MG TABLET PO (20:35)
[2024-09-21] MEDS: Acetaminophen 325 MG TABLET 975 MG PO (20:35)
[2024-09-21 21:05] VITALS: BP 125/71; PULSE 96; RESP 20; TEMP 37.2; O2SAT 99
== END 2024-09-21 21:05 | disposition home or self-care (01) ==
PROVIDERS: Physician Assistant; Emergency Provider Emergency Medicine Emergency Medical Services; PCP General Practice
DX: J20.9 Acute bronchitis, unspecified (principal); J45.901 Unspecified asthma with (acute) exacerbation; R07.89 Other chest pain; R05.9 Cough, unspecified; J02.9 Acute pharyngitis, unspecified; Z79.899 Other long term (current) drug therapy; Z79.02 Long term (current) use of antithrombotics/antiplatelets; Z03.818 Encounter for observation for suspected exposure to other biological agents ruled out
CPT/HCPCS: 0241U; 71046; 87651; 93005; 99283; 99285

== ENCOUNTER → 2024-09-21 17:51 | Outpatient (BNV) | payer MEDICAID, SELFPAY | PROVIDERS: Emergency Provider Emergency Medicine Emergency Medical Services; PCP General Practice; Visit Provider Internal Medicine Cardiovascular Disease | DX: R07.9 Chest pain, unspecified (principal) | CPT/HCPCS: 93010 ==

== ENCOUNTER → 2024-09-21 19:30 | Outpatient (BNV) | payer MEDICAID, SELFPAY | PROVIDERS: Emergency Provider Emergency Medicine Emergency Medical Services; PCP General Practice; Visit Provider Radiology Neuroradiology | DX: J02.9 Acute pharyngitis, unspecified (principal); R07.9 Chest pain, unspecified; R05.9 Cough, unspecified | CPT/HCPCS: 71046 ==

== ENCOUNTER 2025-03-31 23:07 | Emergency (ER) | payer OTHER, SELFPAY ==
--- NOTE | ~2025-03-31 | XR_ITS ---
CLINICAL HISTORY: pain 3 view right ankle Comparison: CR/CT/SR - XR FOOT 3 OR MORE VIEWS RIGHT - 04/08/24 08:03 EDT CR/CT/SR - XR ANKLE 3 OR MORE VIEWS RIGHT - 04/08/24 08:00 EDT Findings: Bones intact. No dislocations. No significant arthritic change or erosions. No ankle effusion. No radiopaque foreign body. Calcaneal spur. Accessory ossicle posterior of the talus; os trigonum, stable. IMPRESSION: No acute findings of the right ankle. This document has been electronically signed by: Kang Parker MD on 03/31/2025 23:53:08
[2025-03-31 23:18] VITALS: BP 133/64; PULSE 85; RESP 20; TEMP 36.1; O2SAT 96; BMI 36.6
--- NOTE | 2025-04-01 00:01 | ED.EXTPRO ---
HPI - Extremity Problem General Chief complaint: Extremity Problem Stated complaint: twisted ankle walking down stairs Time Seen by Provider: 03/31/25 23:40 Source: patient Mode of arrival: ambulatory Limitations: no limitations History of Present Illness ED Provider: Dr. Sil Vogt HPI Narrative: Patient comes to the emergency room complaining of a sprain ankle on the right side. Patient states that earlier this evening, patient was walking down the stairs at home and sprain her ankle. Patient states that she has a lot of pressure and discomfort around the lateral aspect of the right ankle but is able to walk. Denies any other injury. Related Data Home Medications ?Medication ?Instructions ?Recorded ?Confirmed albuterol sulfate 90 mcg/actuation 2 puff inhalation Q4H PRN 04/16/24 aerosol inhaler (Ventolin HFA) amitriptyline 75 mg tablet 75 mg PO BEDTIME 04/16/24 atorvastatin 40 mg tablet 40 mg PO DAILY 04/16/24 baclofen 20 mg tablet 20 mg PO BID 04/16/24 cyanocobalamin (vitamin B-12) 500 500 mcg PO DAILY 04/16/24 mcg tablet famotidine 20 mg tablet 20 mg PO heartburn 04/16/24 gabapentin 800 mg tablet 800 mg PO pain 04/16/24 loratadine 10 mg tablet 10 mg PO QAM 04/16/24 mometasone 100 mcg/actuation HFA 1 puff inhalation 04/16/24 aerosol inhaler (Asmanex HFA) quetiapine 100 mg tablet 100 mg PO BEDTIME 04/16/24 sertraline 50 mg tablet 50 mg PO DAILY 04/16/24 zolpidem 5 mg tablet 5 mg PO BEDTIME PRN insomnia 04/16/24 Previous Rx's ?Medication ?Instructions ?Recorded acetaminophen 500 mg tablet 1,000 mg (2 x 500 mg) PO Q6H PRN 09/21/24 (Tylenol Extra Strength) fever or pain #20 tabs amoxicillin 500 mg capsule 1,000 mg (2 x 500 mg) PO TID 5 09/21/24 days #30 caps azithromycin 250 mg tablet See Rx Instructions PO .COMPLEX #6 09/21/24 (Zithromax Z-Surinder) tabs prednisone 20 mg tablet 60 mg (3 x 20 mg) PO DAILY 5 days 09/21/24 #15 tabs Allergies Allergy/AdvReac Type Severity Reaction Status Date / Time No Known Allergies Allergy Unknown NONE Verified 03/31/25 23:20 Review of Systems Review of Systems: Constitutional : No Weight loss, No Fever, No Chills, No Night Sweats, No Fatigue, No Malaise ENT/Mouth : No Hearing loss, No Ear Pain, No Nasal Congestion, No Sinus Pain, No Hoarseness, No sore throat, No Rhinorrhea, No Swallowing Difficulty Eyes: No Eye Pain, No Swelling, No Redness, No Foreign Body, No Discharge, No Vision Changes Cardiovascular : No Chest Pain, No SOB, No Dyspnea on Exertion, No Orthopnea, No Edema, No Palpitations Respiratory : No Cough, No Sputum, No Wheezing, No Smoke Exposure, No Dyspnea Gastrointestinal : No Nausea, No Vomiting, No Diarrhea, No Constipation, No abdominal Pain, No Hematochezia, No Melena Genitourinary : no irregular bleeding, No Dysuria, No Urinary Frequency, No Hematuria, No Urinary Incontinence, No Urgency, No Flank Pain, No Urinary Flow Changes, No Hesitancy Musculoskeletal : Complaining of right ankle pain and swelling, No Myalgias, No Joint Swelling Skin : No Skin Lesions, No rash Neuro : No Weakness, No Numbness, No Paresthesias, No Loss of Consciousness, No Dizziness, No Headache Psych : No Anxiety/Panic, No Depression, No SI/HI/AH/VH, No Social Issues, Heme/Lymph: No Bruising, No Bleeding,No Lymphadenopathy Endocrine : No Polyuria, No Polydipsia, No Temperature Intolerance [facility] Social History Social History (Updated 04/16/24 @ 14:01 by ELEANOR Nelson) Current occupational status: employed Current occupation: [employer] Physical Exam Exam: Exam: Appearance: Alert. Oriented X3. No acute distress. Eyes: Pupils equal, round and reactive to light. ENT: Pharynx normal. Neck: Normal inspection. Neck supple. No lymph nodes noted. No crepitus CVS: Normal heart rate and rhythm. Pulses normal. Normal S1 and S2 Respiratory: No respiratory distress. Breath sounds normal. No Wheezing. No rales Abdomen: Soft and nontender. No rigidity. No distention. Skin: Skin warm and dry. Normal skin color. Normal skin turgor. Extremities: No significant pain to palpation over the lateral malleolus or medial malleolus. There is slight swelling, no significant ecchymosis. Patient able to flex and extend and rotate the ankle. Patient able to walk and bear weight Neuro: Oriented X 3. No motor deficit. No sensory deficit. Moving all extremities. No slurred speech. CN 2 through 12 grossly intact Psych: calm, cooperative, normal affect Vital Signs: Vital Signs: Last Vital Signs Temp 97 F 03/31/25 23:18 Pulse 85 03/31/25 23:18 Resp 20 03/31/25 23:18 BP 133/64 03/31/25 23:18 Pulse Ox 96 03/31/25 23:18 O2 Del Method Room Air 03/31/25 23:18 BMI result Body Mass Index 36.6 Medical Decision Making Medical Decision Making MDM Narrative: X-rays of the ankle did not show any acute abnormality. Discussed with the patient that she likely has a sprain ankle, no obvious fracture. Patient states that she has a ibuprofen 800 at home and has plenty of pills at home. Independent Interpretation I performed an independent interpretation of an: Plain X-Ray Radiology Impression Discussion of test interpretation with radiology: I have reviewed the radiologist's reading. Radiologist Impression: Bones intact. No dislocations. No significant arthritic change or erosions. No ankle effusion. No radiopaque foreign body. Calcaneal spur. Accessory ossicle posterior of the talus; os trigonum, stable. IMPRESSION: No acute findings of the right ankle. Discharge Plan Discharge Clinical Impression: Sprain of ankle Patient Disposition: Home, Self-Care Instructions: Ankle Sprain (ED) Additional Instructions: Please follow-up with your primary care physician tomorrow. If you have any worsening or new symptoms, please return to the emergency room or call 911 Prescriptions: No Action amoxicillin 500 mg capsule 1,000 mg PO TID 5 Days Qty: 30 0RF azithromycin [Zithromax Z-Surinder] 250 mg tablet See Rx Instructions .ROUTE .COMPLEX Qty: 6 0RF Rx Instructions: take 500 mg today (day 1), then 250 mg for 4 days (days 2-5) prednisone 20 mg tablet 60 mg PO DAILY 5 Days Qty: 15 0RF acetaminophen [Tylenol Extra Strength] 500 mg tablet 1,000 mg PO Q6H PRN (Reason: fever or pain) Qty: 20 0RF zolpidem 5 mg tablet 5 mg PO BEDTIME PRN (Reason: insomnia) gabapentin 800 mg tablet 800 mg PO sertraline 50 mg tablet 50 mg PO DAILY cyanocobalamin (vitamin B-12) 500 mcg tablet 500 mcg PO DAILY famotidine 20 mg tablet 20 mg PO baclofen 20 mg tablet 20 mg PO BID quetiapine 100 mg tablet 100 mg PO BEDTIME amitriptyline 75 mg tablet 75 mg PO BEDTIME atorvastatin 40 mg tablet 40 mg PO DAILY Asmanex HFA 100 mcg/actuation HFA aerosol inhaler 1 puff inhalation albuterol sulfate [Ventolin HFA] 90 mcg/actuation HFA aerosol inhaler 2 puff inhalation Q4H PRN loratadine 10 mg tablet 10 mg PO QAM Stand Alone Forms: Work/School Release Print Language: Serbian
--- OUTSIDE RECORDS SUMMARY | 2025-04-01 00:15 | XMS_ITS | Encounter Summary ---
Author Organization [employer] Address [address] [facility] [address] [place] [address] Care Team Providers Care Prekindergarten Teacher Name Role Phone Selina Hassan MD Primary Care Provider [phone] Reason for Visit * Reason Onset Date Comments Medication Question 03/29/2025 Encounter Details Date Type Department Care Team ([facility] st Contact Info) Description 03/29/2025 Telephone [facility] [address] [place], [place] [phone] Selina Hassan MD [address] [place] [address] Medication Question Social History Tobacco Use Types Packs/Day Years [...] is your housing situation today? I have mendoza adame 10/07/[address] you li ve. Do you have problems with any of the following? I am not sure 10/07/2024 Food Insecurity Answer Date Recorded Within the past 12 months, y ou worried that your food would run out before you got money to buy more: Sometimes True 2024 Within the past 12 months,th e food you bought just didn't last and you didn't have enough money to get more: Sometimes True 10/07/2024 Transportation Answer Date Recorded In the past 12 months, has l ack of transportation kept you from medical appts, meetings, work or from getting things needed for daily living? No 10/07/2024 Utilities Answer Date Recorded In the past 12 months, has t he electric, gas, oil or water company threatened to shut off services in your home? No 10/21/2023 Depression Answer Date Recorded Patient Health Questionnaire-2 Score 6 10/31/2023 Internet Access Answer Date Recorded Internet Access Q1 Yes 10/07/2024 Internet Access Q2 Not on file 10/07/2024 Comments No Sex and Gender Information Value Date Recorded Sex Assigned at Female 04/29/2023 10:59 AM EST Legal Sex Female 10:55 AM EST Gender Identity Female 04/29/2023 10:59 AM EST Sexual Orientation Don't know 10/31/2023 1: 18 PM EDT Sexual Orientation Straight 10/31/2023 1: 18 PM EDT documented as of this encounter Miscellaneous Notes * Telephone Encounter - Leesa Win RN - 03/29/2025 4:27 PM EDT TC placed to patient [phone] in regards to below message. Patient did not answer, RN left VM requesting CB to red team nurses. Patient to f/u PRN. * Telephone Encounter - King Braswell - 03/29/2025 10:19 AM EDT Tc from pt requesting a dosage and or quantity increase on gabapentin (Neurontin) 800 MG tablet stating that she feels she's needed 3 to be able to get through the day. Please contact pt at [phone]. documented in this encounter Plan of Treatment Not on file documented as of this encounter Visit Diagnoses Not on filedocumented in this encounter Additional Health Concerns Assessment Noted Time PHQ-9 Depression Total Score: 15 024 9:23 AM EDT documented as of this encounter Care Teams Prekindergarten Teacher Relationship Specialty Start Date End Date Selina Hassan MD [address] [place] [address] PCP - General Family Medicine 10/31/23 documented as of this encounter
--- OUTSIDE RECORDS SUMMARY | 2025-04-01 00:15 | XMS_ITS | Encounter Summary ---
Author Organization [employer] Address [address] [facility] [address] [place] [address] Care Team Providers Care Cigar Head Stringer Name Role Phone Selina Hassan MD Primary Care Provider [phone] Reason for Visit * Reason Comments Med Refill Encounter Details Date Type Department Care Team (Late st Contact Info) Description 08/17/2023 Refill [facility] [address] [place], [place] [phone] Dylan Ferguson MD [address] [place] [address] Social History Tobacco Use Types Packs/Day Years [...] on filedocumented in this encounter Care Teams Cigar Head Stringer Relationship Specialty Start Date End Date Selina Hassan MD [address] [place] [id number] PCP - General Family Medicine 10/31/23 documented as of this encounter
--- OUTSIDE RECORDS SUMMARY | 2025-04-01 00:15 | XMS_ITS | Encounter Summary ---
Author Organization [employer] Address [address] [facility] 7[address] [place] [address] Care Team Providers Care Director Of Vocational Guidance Name Role Phone Selina Hassan MD Primary Care Provider [phone] Encounter Details Date Type Department Care Team (Late st Contact Info) Description 03/31/2025 Orders Only [facility] External Provider, [facility] Social History Tobacco Use Types Packs/Day Years [...] on file documented as of this encounter Procedures Procedure Name Priority Date/Time Associated Diagnosis Comments XR ANKLE 3+ VIEWS RIGHT Routine 03/31/2025 11:53 PM EDT documented in this encounter Results * XR Ankle 3+ Views Right (03/31/2025 11:53 PM EDT) Anatomical Region Laterality Modality Lower Extremities, Ankle Right Radiogr aphic Imaging 03/31/2025 11:5 3 PM EDT Narrative 03/31/2025 11:54 PM EDT [place] [address] XRay Report Signed Patient: Lia Dudley MR#: [id number] : 1970 Acct:[id number] Age/Sex: 54 / F ADM Date: 03/31/25 Loc: .ED Attending Dr: Ordering Physician: Sil Vogt MD Date of Service: 03/31/25 Procedure(s): XR ankle RT min 3V Accession Number(s): [id number] cc: Selina Hassan; Sil Vogt MD Reason for Exam: pain CLINICAL HISTORY: pain 3 view right ankle Comparison: CR/WI/SR - XR FOOT 3 OR MORE VIEWS RIGHT - 04/08/24 08:03 EDT CR/WI/SR - XR ANKLE 3 OR MORE VIEWS RIGHT - 04/08/24 08:00 EDT Findings: Bones intact. No dislocations. No significant arthritic change or erosions. No ankle effusion. No radiopaque foreign body. Calcaneal spur. Accessory ossicle posterior of the talus; os trigonum, stable. IMPRESSION: No acute findings of the right ankle. This document has been electronically signed by: Kang Parker MD on 03/31/2025 23:53:08 Dictated By: Kang Parker MD Signed By: <Electronically signed by Kang Parker MD in OV> 03/31/252353 DD/ 52 TD/TT: 03/31/252352 Clean Room Operator: Procedure Note Donotuseinterpreter, Image - 03/31/[address] [address] XRay Report Signed Patient: Lia DudleyMR#: [id number] : 1970Acct:[id number] Age/Sex: 54 / FADM Date: 03/31/25 Loc: .ED Attending Dr: Ordering Physician: Sil Vogt MD Date of Service: 03/31/25 Procedure(s): XR ankle RT min 3V Accession Number(s): [id number] cc: Selina Hassan; Sil Vogt MD Reason for Exam: pain CLINICAL HISTORY: pain 3 view right ankle Comparison: CR/WI/SR - XR FOOT 3 OR MORE VIEWS RIGHT - 04/08/24 08:03 EDT CR/WI/SR - XR ANKLE 3 OR MORE VIEWS RIGHT - 04/08/24 08:00 EDT Findings: Bones intact. No dislocations. No significant arthritic change or erosions. No ankle effusion. No radiopaque foreign body. Calcaneal spur. Accessory ossicle posterior of the talus; os trigonum, stable. IMPRESSION: No acute findings of the right ankle. This document has been electronically signed by: Kang Parker MD on 03/31/2025 23:53:08 Dictated By: Kang Parker MD Signed By: <Electronically signed by Kang Parker MD in OV> 03/31/252353 DD/ 52 TD/TT: 03/31/252352 Clean Room Operator: [facility] External Provider IMG XR PROCEDURES Edited Result - Final documented in this encounter Visit Diagnoses Not on filedocumented in this encounter Additional Health Concerns Assessment Noted Time PHQ-9 Depression Total Score: 15 024 9:23 AM EDT documented as of this encounter Care Teams Director Of Vocational Guidance Relationship Specialty Start Date End Date Selina Hassan MD [address] [place] [address] PCP - General Family Medicine 10/31/23 documented as of this encounter
--- OUTSIDE RECORDS SUMMARY | 2025-04-01 00:15 | XMS_ITS | Encounter Summary ---
Author Organization [employer] Address [address] [place] [address] Care Team Providers Care Patent Clerk Name Role Phone Selina Hassan MD Primary Care Provider [phone] Reason for Visit * Reason Comments Med Refill Encounter Details Date Type Department Care Team ([facility] st Contact Info) Description 03/29/[address] [facility] [address] [place], [place] [phone] Selina Hassan MD [address] [place] [address] Primary insomnia Social History Tobacco Use Types Packs/Day Years [...] documented as of this encounter Visit Diagnoses Diagnosis Primary insomnia Persistent disorder of initiating or maintaining sleep documented in this encounter Additional Health Concerns Assessment Noted Time PHQ-9 Depression Total Score: 15 024 9:23 AM EDT documented as of this encounter Care Teams Patent Clerk Relationship Specialty Start Date End Date Selina Hassan MD [address] [place] [address] PCP - General Family Medicine 10/31/23 documented as of this encounter
--- OUTSIDE RECORDS SUMMARY | 2025-04-01 00:15 | XMS_ITS | Encounter Summary ---
Author Organization [employer] Address [address] [facility] 7[address] [place] [address] Care Team Providers Care Hedge Trimmer Name Role Phone Selina Hassan MD Primary Care Provider [phone] Reason for Visit * Reason Comments Med Refill Encounter Details Date Type Department Care Team (Late st Contact Info) Description 09/26/2023 Refill [facility] [address] [place], [place] [phone] Dylan Ferguson MD [address] [place] [address] Social History Tobacco Use Types Packs/Day Years [...] on filedocumented in this encounter Care Teams Hedge Trimmer Relationship Specialty Start Date End Date Selina Hassan MD [address] [place] [phone] PCP - General Family Medicine 10/31/23 documented as of this encounter
--- OUTSIDE RECORDS SUMMARY | 2025-04-01 00:15 | XMS_ITS | Encounter Summary ---
Author Organization [employer] Address [address] [facility] [address] [place] [address] Care Team Providers Care Stove Fitter Name Role Phone Selina Hassan MD Primary Care Provider Reason for Visit * Reason Comments Med Change Request Encounter Details Date Type Department Care Team ([facility] st Contact Info) Description 10/10/2023 Refill [facility] [address] [place], [place] [phone] Yaima Rascon FNP Social History Tobacco Use [...] on filedocumented in this encounter Care Teams Stove Fitter Relationship Specialty Start Date End Date Selina Hassan MD [address] [place] [phone] PCP - General Family Medicine 10/31/23 documented as of this encounter
--- OUTSIDE RECORDS SUMMARY | 2025-04-01 00:16 | XMS_ITS | Clinical Summary ---
Author Organization [employer] Address [address] [facility] [address] [place] [address] Care Team Providers Care Gifts Officer Name Role Phone Selina Hassan MD Primary Care Provider [phone] Allergies No known active allergies Medications * [...] tip and replace cap. 16 g 1 023 Active loratadine (Claritin) 10 MG tablet Take 1 tablet (10 mg) by mouth in the morning. 30 tablet 3 023 Active montelukast (Singulair) 10 MG tablet Take 1 tablet (10 mg) by mouth in the morning. 30 tablet 1 023 Active Asmanex HFA 100 MCG/ACT aerosol INHALE 1 PUFF BY MOUTH TWICE DAILY IN THE MORNING AND AT BEDTIME RINSE MOUTH AFTER USING. 13 g 024 Active amitriptyline (Elavil) 75 MG tabletIndications :Migraine without aura and without status migrainosus, not intractable Take 1 tablet (75 mg) by mouth at bedtime. 90 tablet 3 024 Active Cyanocobalamin (Vitamin B-12) [address] 500 mcg under the tongue Once per day. 90 tablet 3 024 Active baclofen (Lioresal) 20 MG tabletIndications :Neck pain TAKE 1 TABLET BY MOUTH TWICE DAILY 180 tablet 1 025 Active gabapentin (Neurontin) 800 MG tabletIndications :Neck pain TAKE 1 TABLET BY MOUTH TWICE DAILY IN THE MORNING AND AT BEDTIME NEEDED FOR PAIN 60 tablet 11 Active QUEtiapine (SEROquel) 100 MG tabletIndications :Depression, unspecified depression type TAKE 1 TABLET BY MOUTH AT BEDTIME 90 tablet 025 Active sertraline (Zoloft) 50 MG tabletIndications :Depression, unspecified depression type TAKE 1 TABLET BY MOUTH EVERY DAY 90 tablet Active famotidine (Pepcid) 20 MG tablet Take 1 tablet (20 mg) by mouth if needed in the morning and at bedtime for heartburn. 180 tablet 3 025 2025 Active albuterol (2.5 MG/3ML) 0.083% nebulizer solution TAKE 3 ML BY NEBULIZATION ROUTE EVERY 6 HOURS NEEDED FOR WHEEZING OR SHORTNESS OF BREATH 75 mL 1 Active albuterol (Ventolin HFA) 108 (90 Base) MCG/ACT inhaler INHALE 2 PUFFS BY MOUTH EVERY 4 HOURS NEEDED FOR WHEEZING OR SHORTNESS OF BREATH 18 g 1 Active atorvastatin (Lipitor) 40 MG tabletIndications :Other hyperlipidemia Take 1 tablet (40 mg) by mouth Once per day. 90 tablet 3 025 Active zolpidem (Ambien) 5 MG tabletIndications :Primary insomnia TAKE 1 TABLET BY MOUTH EVERY DAY AT BEDTIME NEEDED FOR SLEEP 30 tablet 025 Active zolpidem (Ambien) 5 MG tabletIndications :Primary insomnia TAKE 1 TABLET BY MOUTH EVERY DAY AT BEDTIME NEEDED FOR SLEEP 30 tablet 025 2024 Discontinued Active Problems Problem Noted Date Diagnosed Date Splinter of left foot 11/04/2023 Assessment & Plan (11/04/2023 1:30 PM EDT): Neck pain 11/03/2023 Assessment & Plan (11/03/2023 6:38 AM EDT): She would like to have breast reduction performed Needs BMI < 35, will work on with diet and lifestyle Has been to PT and with negative EMG/[place] Primary insomnia 11/03/2023 Assessment & Plan (11/03/2023 6:40 AM EDT): Sparing use of Ambien 5mg, discussed risks of tolerance and oversedation She will discuss other medications with her psych prescriber, when she has that relationship Mild persistent asthma without complication 10/14 Anxiety 04/29/2023 Depression 04/29/2023 Rheumatoid arthritis involving multiple sites (C MS/HCC) 04/29/2023 Migraines 04/29/2023 HLD (hyperlipidemia) 04/29/2023 Encounters Date Type Department Care Team Description 03/31/2025 Orders Only [facility] External Provider, [facility] 03/29/[address] [facility] [address] [place] [address] Selina Hassan MD Primary insomnia 03/29/[address] [facility] [address] [place] [address] Selina Hassan MD Medication Question 02/24/[address] [facility] [address] [place] [address] Selina Hassan MD Other hyperlipidemia 02/08/[address] [facility] [address] [place] [address] Selina Hassan MD Primary insomnia; Depression, unspecified depression type 01/28/[address] [facility] [address] [place] [address] Selina Hassan MD Neck pain from Last 3 Months Immunizations Immunization Administration Dates Next Due Influenza Injectable Quadriv [...] 92 11/04/2023 1:03 PM EDT Temperature 37.1 C (98.7 F) 11/04/2023 1:03 PM EDT Respiratory Rate 12 11/04/2023 1:03 PM EDT [...] FOBT 1970 HIV Screening 1970 Sigmoidoscopy 1968 Disability Screening 1968 Alcohol/Substance Use Screening 1980 Hepatitis C Screening 1986 DTaP/Tdap/Td Vaccines (1 - Tdap) 1987 Hepatitis B Vaccines (1 of 3 - 19+ 3-dose series) 1987 Pneumococcal Vaccine: 50+ Years (1 of 2 - PCV) 1987 Pap Smear 1989 Cervical Cancer Screening 1998 HPV/Cotest 1998 Zoster Vaccines (1 of 2) 2018 Depression Monitoring 05/02/2024 10/31/2023 , 10/31/2023 Tobacco Screening 11/03/2024 11/04/2023 Mammogram 11/24/2024 11/25/2023 Influenza Vaccine (#1) 2025 , 05/26/2023 SDOH Screening 10/07/2025 10/07/2024 RSV Patients and Patients Aged 60 years or older (1 - 1-dose 75+ series) 2043 COVID-19 Vaccine Completed 04/07/2024, 05/26/2023 HIB Vaccines Aged Out No longer eligi [...] patient's age to complete this topic Meningococcal B Vaccine Aged Out No l onger eligible based on patient's age to complete [...] VIEWS RIGHT Routine 03/31/2025 11:53 PM EDT BI MAMMOGRAM SCREENING TOMOSYNTHESIS BILATERAL Routine 11/25/2023 8:29 AM EDT Encounter for screening mammogram for malignant neoplasm of breast from Last 3 Months or Most Recently Relevant to Health Maintenance Results * XR Ankle 3+ Views Right (03/31/2025 11:53 PM EDT) Anatomical Region Laterality Modality Lower Extremities, Ankle Right Radiogr aphic Imaging 03/31/2025 11:5 3 PM EDT Narrative 03/31/2025 11:54 PM EDT [address] [address] XRay Report Signed Patient: Lia Dudley MR#: [id number] : 1970 Acct:[id number] Age/Sex: 54 / F ADM Date: 03/31/25 Loc: .ED Attending Dr: Ordering Physician: Sil Vogt MD Date of Service: 03/31/25 Procedure(s): XR ankle RT min 3V Accession Number(s): [id number] cc: Selina Hassan; Sil Vogt MD Reason for Exam: pain CLINICAL HISTORY: pain 3 view right ankle Comparison: CR/AL/SR - XR FOOT 3 OR MORE VIEWS RIGHT - 04/08/24 08:03 EDT CR/AL/SR - XR ANKLE 3 OR MORE VIEWS [...] signed by Kang Parker MD in OV> 03/31/259 DD/ 52 TD/TT: 03/31/252352 Property Accountant: Procedure Note Donotuseinterpreter, Image - 03/31/2025 [facility] [address] [facility] [place] [address] XRay Report Signed Patient: Lia DudleyMR#: [id number] : 1970Acct:[id number] Age/Sex: 54 / FADM Date: 03/31/25 Loc: HO.ED Attending Dr: Ordering Physician: Sil Vogt MD Date of Service: 03/31/25 Procedure(s): XR ankle RT min 3V Accession Number(s): [id number] cc: Selina Hassan; Sil Vogt MD Reason for Exam: pain CLINICAL HISTORY: pain 3 view right ankle Comparison: CR/AL/SR - XR FOOT 3 OR MORE VIEWS RIGHT - 04/08/24 08:03 EDT CR/AL/SR - XR ANKLE 3 OR MORE VIEWS [...] in OV> 03/31/252353 DD/ 52 TD/TT: 03/31/252352 Property Accountant: us [facility] External Provider IMG XR PROCEDURES Edited Result - Final * BI Mammogram Screening Tomosynthesis Bilateral (11/25/2023 8:29 AM EDT) Anatomical Region Laterality Modality Breast Bilateral Mammography 11/25/2023 8:29 AM EDT Narrative 12/25/2023 7:33 AM EDT [address] [place] [address] Mammography Report Signed Patient: Lia Dudley MR#: [id number] : 1970 Acct:[id number] Age/Sex: 53 / F ADM Date: 11/25/23 Loc: YOAN Attending Dr: Selina Hassan MD Ordering Physician: Selina Hassan Results: 1Negative Date of Service: 11/25/23 Follow Up: 1 Year From Orig ina Mammogram Procedure(s): MM tomosynthesis screening BI Accession Number(s): [id number] cc: Selina Hassan EXAMINATION: MM SCREENING DIGITAL [...] signed by Tere Drake MD in OV> 12/25/23 07 DD/ 08 TD/TT: Property Accountant: Procedure Note Donotuseinterpreter, Image - [facility] [address] [place], [place] [address] Mammography Report Signed Patient: Lia DudleyMR#: [id number] : 1970Acct:[id number] Age/Sex: 53 / FADM Date: 11/25/23 Loc: YOAN Attending Dr: Selina Hassan MD Ordering Physician: Placido Hassanults: 1Negative Date of Service: 11/25/23Follow Up: 1 Year From Orig ina Mammogram Procedure(s): MM tomosynthesis screening BI Accession Number(s): [id number] cc: Selina Hassan EXAMINATION: MM SCREENING DIGITAL BREAST TOMOSYNTHESIS, BILATERAL CLINICAL INFORMATION: Screening. Asymptomatic. COMPARISON: Mammography: This study is compared with prior exams dating back to 2015. TECHNIQUE: Digital breast tomosynthesis is performed in [...] MD in OV> 12/25/23728 DD/ 8 TD/TT: Property Accountant: Selina Hassan MD IMG BI PROCEDURES Final Result from Last 3 Months or Most Recently Relevant to Health Maintenance Care Teams Gifts Officer Relationship Specialty Start Date End Date Selina Hassan MD [address] [place] [id number] PCP - General Family Medicine 10/31/23
[2025-04-01 00:59] VITALS: BP 124/74; PULSE 88; RESP 16; TEMP 36.2; O2SAT 97
== END 2025-04-01 00:59 | disposition home or self-care (01) ==
PROVIDERS: Emergency Provider Emergency Medicine; PCP General Practice
DX: S93.401A Sprain of unspecified ligament of right ankle, initial encounter (principal); W10.9XXA Fall (on) (from) unspecified stairs and steps, initial encounter; Y93.01 Activity, walking, marching and hiking; Y92.9 Unspecified place or not applicable; Y99.8 Other external cause status; Z79.899 Other long term (current) drug therapy
CPT/HCPCS: 73610; 99283

== ENCOUNTER → 2025-03-31 23:30 | Outpatient (BNV) | payer SELFPAY | PROVIDERS: Emergency Provider Emergency Medicine; PCP General Practice; Visit Provider Radiology Diagnostic Radiology | DX: M25.571 Pain in right ankle and joints of right foot (principal) | CPT/HCPCS: 73610 ==